=== PATIENT | male | born 1945 | race Caucasian/White ===

== ENCOUNTER 2023-05-15 21:07 | Observation (INO) | payer MEDICARE, SELFPAY ==
--- NOTE | 2023-05-15 21:13 | PC.NURSE ---
pt to floor via stretcher at this time
--- NOTE | 2023-05-15 21:19 | ECG_ITS ---
APPROVED REPORT Exam: Resting ECG HR:53 bpm ECG Measurements Heart Rate 53 AXES UT 192 P 44 QRSd 119 QRS -53 QT 444 T 18 QTc 428 Conclusion SINUS BRADYCARDIA LEFT ANTERIOR FASCICULAR BLOCK [QRS AXIS <= -45, QR IN I, RS IN II] PROBABLE SEPTAL MYOCARDIAL INFARCTION , OF INDETERMINATE AGE [35 ms Q WAVE IN V1/V2] PROBABLE LATERAL MYOCARDIAL INFARCTION , OF INDETERMINATE AGE [35 ms Q WAVE IN I/aVL/V5/V6] ABNORMAL ECG UNCONFIRMED REPORT Electronically signed by : Chriss Aceves MD 05/16/2023 16:09:31
[2023-05-15 21:20] VITALS: BP 180/92; PULSE 60; RESP 17; TEMP 36.6; O2SAT 98
[2023-05-15 21:21] VITALS: PULSE 56
--- NOTE | 2023-05-15 21:35 | EXP.HP ---
History of Present Illness *Admission Date: 05/15/23 *Reason for visit:: NSTEMI *History of present illness: 77 year old male pt presented from [facility] to medical surgical floor. Hisotry obtain from family at bedside. Pt has hx of htn, bph, cva, and hld. He presented to [facility]. ED via ems. His neighbor called 911. Pt was witnessed having seizure like activity on his porch. EMS administered Versed due to pt being combative in route to [facility]. Upon arrival to [facility], pt was still combative and received Geodon. [facility] ED work up revealed CT scan of brain that reveals right occipital encephalomalacia and parenchymal calcification which is unchanged from last scan in Apr, creatinine of 1.7, and troponin of 204-> 180. Dr. Zepeda spoke with Dr. Armendariz for transfer. Dr. Zepeda consulted the hospitalist team at [facility] for further medical management. I admitted the pt to the medical surgical floor. He will have a cardiology consult in the morning. Son at bedside and reports hx of mini strokes. No new neurological deficits noted by family. No prior hx of seizure. Pt denies any pain. Reports recent falls and had to have fifth digit on right hand reset at [facility]. If any new neurological changes occur overnight, will get repeat head CT. Patient seen independently, concur with REORDERING CLERK note and plan [facility] Disclaimer: The information contained in this section may have been updated after the patient was seen, as this information can be updated by other users. Medical History (Updated 05/15/23 @ 23:53 by Shakila Vo RN) BPH (benign prostatic hyperplasia) COPD (chronic obstructive pulmonary disease) Hyperlipidemia Hypertension Social History (Updated 05/15/23 @ 23:53 by Shakila Vo RN) Smoking Status: Never smoker alcohol intake: never current occupational status: previously employed and retired Travel in the last 8 weeks: None Review of Systems *Cardiovascular Cardiovascular: Denies chest pain and Denies dyspnea *Respiratory Respiratory: Denies dyspnea *Gastrointestinal Gastrointestinal: Reports system reviewed and no additional complaints, except as documented *Genitourinary Genitourinary: Reports system reviewed and no additional complaints, except as documented *Musculoskeletal Musculoskeletal: Reports joint swelling (right knee and right fifth digit pain ) *Neurologic Neurologic: Reports system reviewed and no additional complaints, except as documented Meds Home Medications and Allergies Home Medications Medication Instructions Recorded Confirmed Type cyanocobalamin-liver extract tablet 1 tab PO DAILY 05/15/23 05/15/23 History glucosamine sulfate 500 mg tablet 500 mg PO DAILY 05/15/23 05/15/23 History (Glucosamine) multivitamin 1 tab PO DAILY 05/15/23 05/15/23 History omega-3 fatty acids 1,000 mg PO DAILY 05/15/23 05/15/23 History pravastatin 20 mg tablet 20 mg PO HS 05/15/23 05/15/23 History sertraline 100 mg tablet 100 mg PO DAILY 05/15/23 05/15/23 History tamsulosin 0.4 mg capsule 0.4 mg PO DAILY 05/15/23 05/16/23 History clonidine HCl 0.1 mg tablet 0.1 mg PO DAILYP PRN High blood 05/16/23 05/16/23 History pressure donepezil 5 mg tablet 5 mg PO HS 05/16/23 05/16/23 History doxazosin 8 mg tablet 8 mg PO DAILY 05/16/23 05/16/23 History lisinopril 20 1 tab PO BID 05/16/23 05/16/23 History mg-hydrochlorothiazide 12.5 mg tablet aspirin 81 mg chewable tablet 81 mg PO DAILY #30 tabs 05/17/23 Rx clopidogrel 75 mg tablet 75 mg PO DAILY #30 tabs 05/17/23 Rx metoprolol tartrate 25 mg tablet 25 mg PO BID #30 tabs 05/17/23 Rx New Prescriptions to Start Prescriptions: aspirin Rohith Estrada clopidogrel Rohith Estrada metoprolol tartrate Rohith Estrada Allergies Allergy/AdvReac Type Severity Reaction Status Date / Time Qfagdiz-VAP-IrD Reductase Allergy Hives Verified 05/15/23 23:28 Inhibitor
[2023-05-15 21:55] LABS: Basophils % 0.1 % (0.1-2.0); Eosinophils # 0.1 K/mm3 (0.0-0.4); Hematocrit 33.8 % (42.0-52.0); Hemoglobin 11.9 g/dL (14.1-18.0); Lymphocytes # 0.7 K/mm3 (0.7-4.5); Lymphocytes % 8.8 % (10-50); Mean Corpuscular HGB Conc 35.3 g/dL (31.8-35.4); Mean Corpuscular Hemoglobin 33.9 pg (27.0-31.2); Mean Platelet Volume 8.1 fl (7.4-10.4); Monocytes # 0.3 K/mm3 (0.1-1.0); Monocytes % 3.6 % (1.7-9.3); Neutrophils % 86.5 % (37.0-80.0); Platelet Count 146 K/mm3 (142-424); Red Blood Count 3.52 M/mm3 (4.60-6.20); Red Cell Distribution Width 14.1 % (11.5-17.5); White Blood Count 8.1 K/mm3 (4.8-10.8)
[2023-05-15 21:56] LABS: MANUAL DIFFERENTIAL MANUAL DIFFERENTIAL (MANUAL DIFF)
[2023-05-15 21:59] LABS: Chloride 104 mmol/L (98-107); Sodium 136 mmol/L (136-145)
[2023-05-15 22:00] LABS: Potassium 3.6 mmoL/L (3.5-5.1)
[2023-05-15 22:02] LABS: Alanine Aminotransferase 24 U/L (12-78); Albumin Level 3.8 g/dl (3.5-5.0); Albumin/Globulin Ratio 1.2 (1.1-1.8); Alkaline Phosphatase 78 U/L (38-126); Anion Gap 10.6 mEq/L (5-15); Aspartate Amino Transferase 35 U/L (17-59); Bilirubin,Total 0.6 mg/dl (0.2-1.3); Blood Urea Nitrogen 25 mg/dl (9-20); Carbon Dioxide 25 mmol/L (22.0-30.0); Estimated Glomerular Filt Rate 54 ml/min (>60); GFR (African American) 65 ML/MIN (>60); Globulin 3.1 g/dL (1.3-3.2); Total Protein,Serum 6.9 g/dl (6.3-8.2)
[2023-05-15 22:03] LABS: Calcium 8.6 mg/dl (8.4-10.2); Glucose 116 mg/dl (74-100)
[2023-05-15 22:14] LABS: Troponin I 0.02 ng/ml (0.00-0.034)
[2023-05-15 22:26] LABS: Eosinophils % 1 % (0-3); Lymphocytes % 8 % (10-50); Monocytes % 2 % (2-9); Neutrophils % 89 % (42-76); Ovalocytes 1+; Platelet Estimate Slight Decrease; Total Cells Counted 100
[2023-05-15 22:34] LABS: Cholesterol 127 mg/dl (140-200); Triglycerides 50 mg/dl (30-150); VLDL Cholesterol 10 mg/dL (0-40)
[2023-05-15 22:35] LABS: Chol/HDL Ratio 4.2 (1-3.5); HDL Cholesterol 30 mg/dl (40-60)
[2023-05-15 22:41] LABS: Hemoglobin A1C 5.4 % (4.0-6.0)
[2023-05-15 22:46] LABS: Direct LDL Cholesterol 70.49 mg/dL (100-129)
[2023-05-15 23:07] LABS: Thyroid Stimulating Hormone 7.66 uIU/mL (0.465-4.68)
[2023-05-16] VITALS (8 sets, daily range): BP systolic 142–170; BP diastolic 73–94; PULSE 48–80; RESP 16–20; TEMP 36.8–37.3; O2SAT 93–97; BMI 34.2
[2023-05-16 00:52] LABS: Troponin I 0.02 ng/ml (0.00-0.034)
--- NOTE | 2023-05-16 03:29 | PC.NURSE ---
No pain reported from patient. Heart rhythm sinus perico with heart rate in 50's. Patient alert and oriented. VS stable and patient remained on room air.
[2023-05-16 05:39] LABS: Basophils % 0.3 % (0.1-2.0); Eosinophils # 0.1 K/mm3 (0.0-0.4); Eosinophils % 1.6 % (0.1-12.0); Hematocrit 31.6 % (42.0-52.0); Hemoglobin 11.2 g/dL (14.1-18.0); Lymphocytes % 18.9 % (10-50); Mean Corpuscular HGB Conc 35.3 g/dL (31.8-35.4); Mean Corpuscular Hemoglobin 33.9 pg (27.0-31.2); Mean Corpuscular Volume 96.1 fl (80-94); Mean Platelet Volume 8.7 fl (7.4-10.4); Monocytes # 0.3 K/mm3 (0.1-1.0); Neutrophils # 3.8 K/mm3 (1.8-7.8); Neutrophils % 73.1 % (37.0-80.0); Platelet Count 143 K/mm3 (142-424); Red Blood Count 3.29 M/mm3 (4.60-6.20); Red Cell Distribution Width 14.2 % (11.5-17.5); White Blood Count 5.2 K/mm3 (4.8-10.8)
[2023-05-16 05:47] LABS: Blood Urea Nitrogen 22 mg/dl (9-20); Calcium 8.7 mg/dl (8.4-10.2); Carbon Dioxide 26 mmol/L (22.0-30.0); Creatinine Clearance Estimated 71 mL/min (50-200); Estimated Glomerular Filt Rate 54 ml/min (>60); GFR (African American) 65 ML/MIN (>60); Glucose 96 mg/dl (74-100); Potassium 3.2 mmoL/L (3.5-5.1)
[2023-05-16 06:13] LABS: Sodium 137 mmol/L (136-145)
--- NOTE | 2023-05-16 07:00 | XR_ITS ---
PROCEDURE INFORMATION: Exam: XR Chest Exam date and time: 05/16/2023 5:09 AM Age: 77 years old Clinical indication: Abnormal findings; Abnormal diagnostic tests; Other: Elevated troponins TECHNIQUE: Imaging protocol: Radiologic exam of the chest. Views: 1 view. COMPARISON: No relevant prior studies available. FINDINGS: Lungs: Lung volumes are low. Basilar increased markings are noted. Pleural spaces: Unremarkable. No pleural effusion. No pneumothorax. Heart/Mediastinum: Unremarkable. No cardiomegaly. Bones/joints: Degenerative changes are noted in the bones. IMPRESSION: Low lung volumes, basilar atelectasis.
--- NOTE | 2023-05-16 08:19 | PC.NURSE ---
TECH NOTE; NOTIFIED NURSE OF BLOOD PRESSURE FOR 0800 VITAL SIGNS Darcy VALDIVIA, SRNA
--- NOTE | 2023-05-16 08:55 | CA_ITS ---
APPROVED REPORT EXAM: Comprehensive 2D, Doppler, and color-flow Echocardiogram Cyber Reverse Engineer: Oanh Ly RDCS Ht: 5 ft 9 in Wt: 231lbs BSA: 2.20 BP: 5/9 mmHg Indications: ELEV TROP,NSTEMI,CP 2D Dimensions LVOT 2.08 cm (M/F) 1.5-2.5 M-Mode Dimensions RVDd 3.80 cm (0.9-2.6) LA Diam 4.61 cm (1.9-4.0) LVDd 5.54 cm (3.5-5.7) Ao Diam 2.92 cm (2.0-3.7) LVDs 3.47 cm (3.5-5.7) IVSd 1.41 cm (0.6-1.1) PWd 1.22 cm (0.6-1.1) EF (Teich) 66.80% FS 37.40% EDV (Teich) 149.90 mL ESV (Teich) 49.80 mL LV Diastology E Decel Time 417.00 (160-240 msec) E/A Ratio 0.7 MED E' 5.40 (< 7 cm/sec) E'/MED E' Ratio 13.11 (>14) LAT E' 4.00 (<10 cm/sec) E/LAT E' Ratio 17.70 (>14) Aortic Valve LVOT Max 138.00 (70-110 cm/s) LVOT VTI 33.33 cm AoV Peak Jeffrey. 199.00 (50-130 cm/s) AO Peak GR. 15.80 mmHg AO Mean GR. 7.80 (<5 mmHg) AO VTI 43.07 (18-25 cm) ALESSIO (VTI) 2.63 (2.5-4.5 cm2) Mitral Valve MV E Max Jeffrey. 71.00 (40-130 cm/s) MV A Velocity 97.00 (40-130 cm/s) E/A Ratio 0.73 MV Decel. Time 417.00 (160-240 ms) MV PHT 122.00 ms Left Ventricle The left ventricle cavity is small. The left ventricular systolic function is hyperdynamic. There is increased LV wall thickness. There is normal LV segmental wall motion. The left ventricular diastolic function is normal. LVEF is 70%. Right Ventricle The right ventricle is normal size. The right ventricular systolic function is normal. Atria The left atrium size is normal. The right atrium size is normal. There is no Doppler evidence of interatrial shunt. Aortic Valve The aortic valve is mildly thickened. Aortic sclerosis but no aortic stenosis. Peak velocity 2.1 m/s. Mean AV gradient 9 mmHg. Max AV gradient 18 mmHg. Mild aortic regurgitation. Mitral Valve The mitral valve leaflets are mildly thickened. No evidence of mitral valve stenosis. Trace mitral regurgitation. Tricuspid Valve The tricuspid valve leaflets are thin and pliable. Trace tricuspid regurgitation. There is insufficient TR jet to estimate RVSP. Pulmonic Valve The pulmonary valve is normal in structure. Trace pulmonic regurgitation. Great Vessels The aortic root is normal in size. The ascending aorta is normal in size. IVC is normal in size and collapses >50% with inspiration. Pericardium There is no pericardial effusion. Other Information Study Quality: Fair Conclusion Hyperdynamic LV systolic function (LVEF 70%). Mild AI. Electronically signed by : Larisa Robertson MD 05/16/2023 11:46:39
--- NOTE | 2023-05-16 10:21 | HMH.PTEV ---
Physical Therapy Evaluation Rehab PT IP Evaluation Start: 05/16/23 08:14 Freq: ONCE Status: Active Protocol: Document 05/16/23 10:02 CONRADMARYELLEN (Rec: 05/16/23 10:20 TU [id number]) Subjective/History History History Patient is a 77 year old male admitted to [facility] 05/15/23 for angina. Patient was initially taken/admitted to [facility], then transferred to [facility] for cardiology consult. Patients neighbor called 911 when they saw him demonstrating seizure- like symptoms while sitting his front porch. Patient previously independent with all ADL's/IADL's. He requies a SPC for ambulation at home. I have walkers, but the cane is easier. Patient lives at home with his . Subjective Subjective I feel fine today. I'm supposed to meet with the health care legal assistant this morning. New diagnosis of cancer in past 12 No months? Rehab PT IP Eval Objective Appearance Patient Behavior Appropriate,Cooperative Patient Orientation Person,Place,Birthday Difficulty following instructions none Speech Pattern Clear,Appropriate Ambulation Patient Able to Ambulate Yes Ambulation Observation IP General Gait Pattern Observation Narrow Based Gait Ambulation Distance (feet) 20 Ambulation Assistive Device Rolling Walker Ambulation Ability Minimal x 2 (25% assist) Balance Ability to Arise Able, uses arms to help Sitting Balance Steady, safe Standing Balance Narrow stance w/o support Dynamic Sitting Balance Ability Normal Dynamic Standing Balance Ability Good Transfers Bed Transfer Ability Minimal x 1 (25% assist) Sit to Stand Bed Transfer Ability Minimal x 1 (25% assist) ROM All Extremities PT ROM Status WFL MMT All Extremities PT MMT WFL Rehab PT IP prob,goals,plan Problems Date of Evaluation: 05/16/23 PT IP Problems Bed Mobility,Transfers,Gait, Balance,Self care,Safety Rehab Potential Rehab Potential Good Equipment Needs Assistive Devices None / NA Plan PT Intervention Plan Bed Mobility,Transfers,Gait, Balance,Self ca
--- NOTE | 2023-05-16 10:50 | HMH.OTEV ---
OT Inpatient Evaluation Rehab OT IP Evaluation Start: 05/16/23 08:14 Freq: ONCE Status: Active Protocol: Document 05/16/23 10:38 ARSBRANFORD (Rec: 05/16/23 10:50 [facility] [id number]) Rehab OT IP Assessment Subjective History Patient is a 77 year old male admitted to [facility] 05/15/23 for angina. Patient was initially taken/admitted to [facility], then transferred to [facility] for cardiology consult. Patients neighbor called 911 when they saw him demonstrating seizure- like symptoms while sitting his front porch. Patient previously independent with all ADL's/IADL's. He requies a SPC for ambulation at home. I have walkers, but the cane is easier. Patient lives at home with his . Subjective I am just waiting on the brusher to come and see me. Objective Patient Orientation Person,Place,Birthday Right Upper Extremity Gross ROM WNL Left Upper Extremity Gross ROM WNL Bed Mobility bed mobility-scooting,bed mobility - supine/sit Assist Level Contact Guard/Hand Hold Transfer Training Sit/Stand Transfer Assist Level Minimal x 1 (25% assist) Rehab OT IP prob,goals,plan Problems Date of Evaluation: 05/16/23 OT IP Problems Bed Mobility,Transfers,Balance ,Self care,Safety Rehab Potential Rehab Potential Good Equipment Needs Assistive Devices Rolling / Wheeled Walker Plan OT intervention Plan Bed Mobility,Transfers,Balance ,Self care,Safety,Therapeutic Exercise OT Plan Frequency BID Duration LOS Discharge Goals Bed Mobility Ability Standby Assistance Sit to Stand Chair Transfer Ability Contact Guard/Hand Hold Chair Transfer Ability Contact Guard/Hand Hold Chair Transfer Technique Sit to/from Ambulatory Chair Transfer Assistive Devices Rolling Walker Feeding Ability Assist with Tray Set Up Lower Body Dressing Ability Minimal Assistance Upper Body Dressing Ability Standby Assistance Bathing Ability Minimal Assistance Overall Commode/Toilet Transfer Ability Minimal Assistance
--- NOTE | 2023-05-16 11:01 | SW/DCPLANNER ---
Addendum entered by Guerline Summers 05/16/23 14:31: Dhruv w/ [facility] stated they can accept this referral and services will start first of next week. Original Note: I spoke w/ this patient and his regarding plans once medically stable for discharge. PT/OT evaluated patient and recommended home health services once medically stable for discharge. Patient/ are agreeable and do not have a home health agency preference. Due to patient's location and insurance patient information/order will be faxed to [facility]: patient/ are agreeable. Per MD patient may discharge home tomorrow pending no setbacks.
--- NOTE | 2023-05-16 11:03 | PC.NURSE ---
courtesy tech note: patient rounded on. assisted patient to bathroom x1 assist, activity tolerated well. no further requests at this time. call light w/in reach.
--- NOTE | 2023-05-16 11:06 | HMH.PHAINT1 ---
Pharmacy Intervention Comments: home medication list verified using list from outpatient pharmacy and doctors office
[2023-05-16 12:40] LABS: Anion Gap 10.2 mEq/L (5-15); Chloride 104 mmol/L (98-107)
--- NOTE | 2023-05-16 12:44 | EXP.PN ---
Subjective *Date: 05/16/23 *Time: 12:44 Interval history: Patient was seen and evaluated at the bedside. denies chest pain, shortness of breath, nausea, vomiting, abdominal pain. Patient does not have any complaints at this time. feels better overall Exam Data for Last 24 hours Vital signs and Labs for Last 24 Hours: Temp Pulse Resp BP Pulse Ox O2 Del Method 99.1 F 63 18 157/77 H 93 L Room Air 05/16/23 12:00 05/16/23 12:00 05/16/23 12:00 05/16/23 12:00 05/16/23 12:00 05/16/23 12:00 Laboratory Results - last 24 hr 05/15/23 21:40: WBC 8.1, RBC 3.52 L, Hgb 11.9 L, Hct 33.8 L, MCV 96.0 H, MCH 33.9 H, MCHC 35.3, RDW 14.1, Plt Count 146, MPV 8.1, Neut % (Auto) 86.5 H, Lymph % (Auto) 8.8 L, [place] % (Auto) 3.6, Eos % (Auto) 1.0, Baso % (Auto) 0.1, Neut # (Auto) 7.0, Lymph # (Auto) 0.7, [place] # (Auto) 0.3, Eos # (Auto) 0.1, Baso # (Auto) 0.0, Total Counted 100, Neutrophils % (Manual) 89 H, Lymphocytes % (Manual) 8 L, Monocytes % (Manual) 2, Eosinophils % (Manual) 1, Platelet Estimate Slight decrease, Ovalocytes 1+, Sodium 136, Potassium 3.6, Chloride 104, Carbon Dioxide 25, Anion Gap 10.6, BUN 25 H, Creatinine 1.30 H, Estimated GFR 54 L, Est GFR ( Amer) 65, Glucose 116 H, Hemoglobin A1c 5.4, Calcium 8.6, Total Bilirubin 0.6, AST 35, ALT 24, Alkaline Phosphatase 78, Troponin I 0.02, Total Protein 6.9, Albumin 3.8, Globulin 3.1, Albumin/Globulin Ratio 1.2, Triglycerides 50, Cholesterol 127 L, LDL Cholesterol Direct 70.49 L, VLDL Cholesterol 10, HDL Cholesterol 30 L, Cholesterol/HDL Ratio 4.2 H, TSH 7.66 H 05/16/23 00:25: Troponin I 0.02 05/16/23 05:26: WBC 5.2 D, RBC 3.29 L, Hgb 11.2 L, Hct 31.6 L, MCV 96.1 H, MCH 33.9 H, MCHC 35.3, RDW 14.2, Plt Count 143, MPV 8.7, Neut % (Auto) 73.1, Lymph % (Auto) 18.9, [place] % (Auto) 6.0, Eos % (Auto) 1.6, Baso % (Auto) 0.3, Neut # (Auto) 3.8, Lymph # (Auto) 1.0, [place] # (Auto) 0.3, Eos # (Auto) 0.1, Baso # (Auto) 0.0, Sodium 137, Potassium 3.2 L, Chloride 104, Carbon Dioxide 26, Anion Gap 10.2, BUN 22 H, Creatinine 1.30 H, Estimated Creat Clear 71, Estimated GFR 54 L, Est GFR ( Amer) 65, Glucose 96, Calcium 8.7 I & O for Last 24 hours: Intake & Output 05/13/23 05/14/23 05/15/23 05/16/23 23:59 23:59 23:59 23:59 Output Total 0 / 0 0 / 0 Balance 0 / 0 0 / 0 Weight 105.007 kg Constitutional Constitutional: no acute distress *Routine HEENT Exam Head: Present normocephalic Eye: Present EOMI and PERRL ENT: Present mucous membranes moist *Routine Neck Exam Neck: Present supple; Absent lymphadenopathy *Routine Respiratory Exam Respiratory: Present CTA bilaterally *Routine Cardiovascular Exam Cardiovascular: Present RRR *Routine Abdominal Exam Abdominal: Present soft and normoactive bowel sounds; Absent tenderness *Routine Extremities Exam Extremities: Absent cyanosis, clubbing or edema *Routine Skin Exam Skin: Present warm; Absent rash *Routine Neurological Exam Neurological: Present alert and oriented X3 Assessment and Plan *Assessment and plan (1) NSTEMI (non-ST elevated myocardial infarction): Status: Acute Category: Medical Code(s): I21.4 - Non-ST elevation (NSTEMI) myocardial infarction (2) ELIJAH (acute kidney injury): Status: Acute Category: Medical Code(s): N17.9 - Acute kidney failure, unspecified (3) HTN (hypertension): Status: Acute Category: Medical Code(s): I10 - Essential (primary) hypertension (4) BPH (benign prostatic hyperplasia): Status: Acute Category: Medical Code(s): N40.0 - Benign prostatic hyperplasia without lower urinary tract symptoms (5) CVA (cerebral vascular accident): Status: Acute Category: Medical Code(s): I63.9 - Cerebral infarction, unspecified (6) HLD (hyperlipidemia): Status: Acute Category: Medical Code(s): E78.5 - Hyperlipidemia, unspecified (7) Dementia: Status: Acute Category: Medical
--- NOTE | 2023-05-16 13:06 | EXP.CARD.CON ---
History of Present Illness History of Present Illness Consult date: 05/16/23 Requesting physician: Rohith Estrada Chief complaint: AMS, elevated Troponin History of present illness: 77-year-old white male from [place] without known cardiovascular disease transferred to this facility for elevated troponin. Details of events leading to hospital presentation are unclear-history is obtained from chart, patient, and family who are bedside. Reportedly patient's neighbor called EMS when patient was found slumped over on his porch. He was apparently combative in the ambulance and on initial presentation and received Versed and Geodon. He and his family deny any chest pain or palpitations throughout the scenario but he had screening troponin at outside facility which was elevated at 204. They called our facility for transfer and we agreed. On arrival here patient has been stable without any complaints, his troponins here are 0.02 and 0.02. EKG shows sinus rhythm with no ST changes. Patient reports he lives in an apartment and typically is active and able to exercise on a treadmill or exercise bike 15 to 20 minutes daily, he also does some resistance training exercises without symptoms. Of note he has history of encephalomalacia with parenchymal calcification as evidenced on CT scan which was unchanged from April 2022. Family is bedside and supports the history given. Patient is pleasant and has no symptoms at this time. [facility] Disclaimer: The information contained in this section may have been updated after the patient was seen, as this information can be updated by other users. Medical History (Updated 05/15/23 @ 23:53 by Shakila Vo RN) BPH (benign prostatic hyperplasia) COPD (chronic obstructive pulmonary disease) Hyperlipidemia Hypertension Social History (Updated 05/15/23 @ 23:53 by Shakila Vo RN) Smoking Status: Never smoker alcohol intake: never current occupational status: previously employed and retired Travel in the last 8 weeks: None Review of Systems Constitutional Constitutional: Denies fatigue and Denies weakness Eyes Eyes: Denies loss of vision ENT Ears, Nose, Mouth, and Throat: Denies hearing loss *Cardiovascular Cardiovascular: Denies chest pain and Denies dyspnea *Respiratory Respiratory: Denies cough and Denies dyspnea *Gastrointestinal Gastrointestinal: Denies change in stool character, Denies nausea and Denies vomiting *Genitourinary Genitourinary: Denies difficulty urinating *Musculoskeletal Musculoskeletal: Denies muscle weakness Integumentary/Breasts Skin/Breast: Denies changing lesions *Neurologic Neurologic: Reports system reviewed and no additional complaints, except as documented, Denies loss of vision and Denies weakness Endocrine Endocrine: Denies fatigue Exam Data for Last 24 hours Vital signs and Labs for Last 24 Hours: Temp Pulse Resp BP Pulse Ox O2 Del Method 99.1 F 63 18 157/77 H 93 L Room Air 05/16/23 12:00 05/16/23 12:00 05/16/23 12:00 05/16/23 12:00 05/16/23 12:00 05/16/23 12:00 Laboratory Results - last 24 hr 05/15/23 21:40: WBC 8.1, RBC 3.52 L, Hgb 11.9 L, Hct 33.8 L, MCV 96.0 H, MCH 33.9 H, MCHC 35.3, RDW 14.1, Plt Count 146, MPV 8.1, Neut % (Auto) 86.5 H, Lymph % (Auto) 8.8 L, [place] % (Auto) 3.6, Eos % (Auto) 1.0, Baso % (Auto) 0.1, Neut # (Auto) 7.0, Lymph # (Auto) 0.7, [place] # (Auto) 0.3, Eos # (Auto) 0.1, Baso # (Auto) 0.0, Total Counted 100, Neutrophils % (Manual) 89 H, Lymphocytes % (Manual) 8 L, Monocytes % (Manual) 2, Eosinophils % (Manual) 1, Platelet Estimate Slight decrease, Ovalocytes 1+, Sodium 136, Potassium 3.6, Chloride 104, Carbon Dioxide 25, Anion Gap 10.6, BUN 25 H, Creatinine 1.30 H, Estimated GFR 54 L, Est GFR ( Amer) 65, Glucose 116 H, Hemoglobin A1c 5.4, Calcium 8.6, Total Bilirubin 0.6, AST 35, ALT 24, Alkaline Phosphatase 78, Troponin I 0.02, Total Protein 6.9, Albumin 3.8, Globulin 3.1, Albumin/Globulin Ratio 1.2, Triglyceride
--- NOTE | 2023-05-16 20:04 | PC.NURSE ---
Walked in to patient's room as bed alarm was alarming. Witnessed patient taking pill medications from son. Educated patient and family that we need to know what medications patient is taking and have to have them verified with pharmacy. Patient and family stated that they were instructed by pharmacy that they could not place labels on prescription bottles as the pills look different and do not match prescription bottle. Family stated that the pills are the same but transferred from one bottle to a different bottle by patient's brother in law. Patient and patient family stated that pharmacy then instructed the primary dayshift nurse to tell patient that he could just take his own medicine tonight at his own discretion. Primary RN made aware of incident.
--- NOTE | 2023-05-16 20:32 | PC.NURSE ---
2100 meds held due to charge nurse reporting that she witnessed patient taking night time meds. Patient and were unable to confirm the medications that were taken just states they are his night time meds.
[2023-05-17] VITALS: PULSE 70
[2023-05-17 04:00] VITALS: BP 188/72; PULSE 60; PULSE 61; RESP 16; TEMP 37; O2SAT 97; BMI 33.7
[2023-05-17 08:00] VITALS: BP 186/81; PULSE 60; PULSE 61; RESP 21; TEMP 36.5; O2SAT 99
--- NOTE | 2023-05-17 08:42 | PC.NURSE ---
pt ambulated around the unit with walker gissellea from staff.
--- NOTE | 2023-05-17 09:50 | PC.NURSE ---
pts gait is unsteady @ times. I educated him on using the walker. he was able to demonstrate increased safety and verbalized understanding
--- NOTE | 2023-05-17 11:47 | EXP.DC.SUM ---
General Admission date:: 05/15/23 Discharge date: 05/17/23 HPI HPI HPI: 77 year old male pt presented from [facility] to medical surgical floor. Hisotry obtain from family at bedside. Pt has hx of htn, bph, cva, and hld. He presented to [facility]. ED via ems. His neighbor called 911. Pt was witnessed having seizure like activity on his porch. EMS administered Versed due to pt being combative in route to [facility]. Upon arrival to [facility], pt was still combative and received Geodon. [facility] ED work up revealed CT scan of brain that reveals right occipital encephalomalacia and parenchymal calcification which is unchanged from last scan in Apr, creatinine of 1.7, and troponin of 204-> 180. Dr. Zepeda spoke with Dr. Armendariz for transfer. Dr. Zepeda consulted the hospitalist team at [facility] for further medical management. I admitted the pt to the medical surgical floor. He will have a cardiology consult in the morning. Son at bedside and reports hx of mini strokes. No new neurological deficits noted by family. No prior hx of seizure. Pt denies any pain. Reports recent falls and had to have fifth digit on right hand reset at [facility]. If any new neurological changes occur overnight, will get repeat head CT. Patient seen independently, concur with [employer] note and plan Hospital Course Hospital Course Hospital Course: 77 year old male pt presented from [facility] to medical surgical floor. Hisotry obtain from family at bedside. Pt has hx of htn, bph, cva, and hld. He presented to [facility]. ED via ems. His neighbor called 911. Pt was witnessed having seizure like activity on his porch. EMS administered Versed due to pt being combative in route to [facility]. Upon arrival to [facility], pt was still combative and received Geodon. [facility] ED work up revealed CT scan of brain that reveals right occipital encephalomalacia and parenchymal calcification which is unchanged from last scan in Apr, creatinine of 1.7, and troponin of 204-> 180. Dr. Zepeda spoke with Dr. Armendariz for transfer. Dr. Zepeda consulted the hospitalist team at [facility] for further medical management. I admitted the pt to the medical surgical floor. He will have a cardiology consult in the morning. Son at bedside and reports hx of mini strokes. No new neurological deficits noted by family. No prior hx of seizure. Pt denies any pain. Reports recent falls and had to have fifth digit on right hand reset at [facility]. If any new neurological changes occur overnight, will get repeat head CT. NSTEMI seen by cardiology ELIJAH - improved HTN BPH CVA HLD -awaiting home med rec DEMENTIA - alert awake stable Exam Data for Last 24 hours Vital signs and Labs for Last 24 Hours: Temp Pulse Resp BP Pulse Ox O2 Del Method 97.7 F 61 21 186/81 H 99 Room Air 05/17/23 08:00 05/17/23 08:00 05/17/23 08:00 05/17/23 08:00 05/17/23 08:00 05/17/23 11:00 Laboratory Results - last 24 hr 05/16/23 05:26: Chloride 104, Anion Gap 10.2 I & O for Last 24 hours: Intake & Output 05/14/23 05/15/23 05/16/23 05/17/23 23:59 23:59 23:59 23:59 Intake Total 735 / 2210 1835 / 1835 Output Total 0 / 0 300 / 300 785 / 785 Balance 0 / 0 435 / 1910 1050 / 1050 Weight 105.007 kg 103.532 kg Constitutional Constitutional: no acute distress *Routine HEENT Exam Head: Present normocephalic Eye: Present EOMI and PERRL ENT: Present mucous membranes moist *Routine Neck Exam Neck: Present supple; Absent lymphadenopathy *Routine Respiratory Exam Respiratory: Present CTA bilaterally *Routine Cardiovascular Exam Cardiovascular: Present RRR *Routine Abdominal Exam Abdominal: Present soft and normoactive bowel sounds; Absent tenderness *Routine Extremities Exam Extremities: Absent cyanosis, clubbing or edema *Routine Skin Exam Skin: Present warm; Absent rash *Routine Neurological Exam Neurological: Present alert and oriented X3 Results Data Completed and Pending Ashlee
--- NOTE | 2023-05-17 11:53 | PC.NURSE ---
pts POA states he does not want to utalize Meds to beds and will not be picking up new prescriptions because they have them at home. He wants to speak to the scuba dive training instructor at the follow up appointment before making any decisions. told pt and his who is @ bedside
--- NOTE | 2023-05-17 12:05 | PC.NURSE ---
pt has been dsicahrged from the facility. I spoke with pts POA and gave him discahrge instructions as well as follow up information.
--- NOTE | 2023-05-20 14:38 | CARE MANAGER ---
Attempted to contact patient x2 related to hospital discharge. Left VM message. ISIAH Andrade
== END 2023-05-17 12:06 | disposition home health service (06) ==
PROVIDERS: Nurse Practitioner Critical Care Medicine; Admitting Provider Internal Medicine; PCP Nurse Practitioner; Visit Provider Internal Medicine
DX: I20.89 Other forms of angina pectoris (principal); I21.4 Non-ST elevation (NSTEMI) myocardial infarction; N17.9 Acute kidney failure, unspecified; I10 Essential (primary) hypertension; N40.0 Benign prostatic hyperplasia without lower urinary tract symptoms; E78.5 Hyperlipidemia, unspecified; F03.90 Unspecified dementia, unspecified severity, without behavioral disturbance, psychotic disturbance, mood disturbance, and anxiety; R29.6 Repeated falls; Z79.899 Other long term (current) drug therapy
CPT/HCPCS: G0379; 36415; 71045; 80048; 80053; 80061; 83036; 84443; 84484; 85007; 85025; 93005; 93306; 97116; 97163; 97166; 97530; G0378